=== PATIENT | male | born 1965 | race Caucasian/White ===

== ENCOUNTER 2018-04-15 10:43 | Emergency (ER) | payer SELFPAY ==
[~2018-04-15] VITALS: Ht 175.3 cm; Wt 72.2 kg
[2018-04-15 10:48] VITALS: BP 130/72
--- NOTE | 2018-04-15 10:54 | NUR ---
PT AMBULATES TO BED 8, REPORT GIVEN TO NELLA RAMOS
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
--- NOTE | 2018-04-15 12:02 | NUR ---
XRAY AT BEDSIDE
--- NOTE | 2018-04-15 13:14 | NUR ---
PT APPEARS TO BE RESTING IN NO APPARENT DISTRESS
[2018-04-15 13:42] VITALS: BP 118/78
== END 2018-04-15 13:42 | disposition home or self-care (01) ==
LOC: MED 10:43
DX: S99.922A Unspecified injury of left foot, initial encounter (principal); X58.XXXA Exposure to other specified factors, initial encounter; Y93.89 Activity, other specified; Y92.89 Other specified places as the place of occurrence of the external cause; Y99.8 Other external cause status
CPT/HCPCS: 73660; 99284; Q0092